=== PATIENT | female | born 1955 | race Caucasian/White ===

== ENCOUNTER → 2017-02-25 | Outpatient (CLI) | payer BC ==
[~2017-02-25] MED LIST: ACTONEL; ACTONEL PO; FENOFIBRATE160 MG PO; FOSAMAX35 MG PO; HYDROCODON-ACE1 EACH PO; HYDROCODONE-APA1 T42; HYDROCODONE-APA1 T42 PO; LEVAQUIN PO; LIPITOR PO; LORTAB 5/500 TA1 TA1 PO; LORTAB 7.5-5001 TAB PO; LOVAZA1 G PO; PHENERGAN25 MG PO; PROTONIX PO
--- NOTE | ~2017-02-25 | MY29 ---
[facility] A Service of [facility] & [facility] RADIOLOGY TEXT RESULTS PATIENT: JOHNNY BENSON LOCATION: [facility] : 55 UNIT #: [id number] AGE: [address]: Quin Duque SEX: F ORDER DR: [id number] [facility] [address] [place], [place] [address] [id number] O MR#: [id number] Acc #: [id number] NAME: JOHNNY BENSON : 1955 SEX: F STUDY DATE/TIME: 02/25/2017 10:30 UNIT: [facility] ROOM: STUDY DESCRIPTION: MY SERA SCREENING W/ CAD BILAT Attending Physician: Aneta Londono Referring Physician: Aneta Londono Ordering Physician: Aneta Londono Primary Care Physician: Aneta Londono MEDICAL IMAGING REPORT This report is preliminary unless electronic signature is present EXAM Digital screening mammogram, 02/25/2017, [facility]. HISTORY 61-year-old woman no risk elevation. Annual screen. COMPARISON Mammograms date to 11/18/2005 with most recent 01/28/2016. TECHNIQUE Digital imaging of each breast was completed utilizing a two-view examination of each breast in craniocaudal and mediolateral-oblique projections. Review and interpretation of digital mammograms include a second review in conjunction with FDA-approved CAD device. There is a normal parenchymal presentation bilaterally consistent with the patient's age. There are no breast masses imaged and no parenchymal asymmetry is visualized. There are no suspicious microcalcifications and I see no focal architectural disturbance. IMPRESSION Negative screening digital mammogram. One-year followup recommended. Patients over the age of 40 are entered into a reminder system with target due date for the next mammogram. A result letter will also be sent to the patient. BIRADS: 1 Negative ADDENDUM Breast parenchyma is fatty replaced. [facility] A Service [facility] RADIOLOGY TEXT RESULTS PATIENT: JOHNNY BENSON LOCATION: [facility] : 55 UNIT #: [id number] AGE: [address]: Quin Duque SEX: F ORDER DR: Dictated by... Nash Pina M.D. THIS IS AN ELECTRONICALLY VERIFIED REPORT Nash Pina M.D. at 02/25/2017 2:38 PM EDEN/pollo TD: 02/25/2017 14:01 JOB #: [id number] MEDICAL IMAGING REPORT Page 1 of 1 COPY
== END | disposition home or self-care (01) ==
LOC: CWCC 02-24 09:45
DX: Z12.31 Encounter for screening mammogram for malignant neoplasm of breast (principal); R92.8 Other abnormal and inconclusive findings on diagnostic imaging of breast
CPT/HCPCS: G0202